=== PATIENT | male | born 1940 | race Caucasian/White ===

== ENCOUNTER → 2016-10-06 | Outpatient (CLI) | payer OTHER, MEDICARE ==
--- NOTE | 2016-10-06 14:42 | DIAGNOSTIC IMAGING REPORT ---
RIGHT KNEE 4 VIEWS CLINICAL HISTORY: Right knee pain COMPARISON: None. DISCUSSION: There is mild three compartment osteoarthritis. There are no acute fractures. There are no erosive or destructive changes. 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 IMPRESSION: Mild degenerative change. No fractures, subluxations, or destructive lesions are visualized. Electronically signed by: David Reilly M.D. 10/06/2016 2:40 PM Dictated Date/Time: 10/06/2016 2:39 PM
== END | disposition home or self-care (01) ==
LOC: C.RDSM 15:43
PROVIDERS: ATTEND Physician Assistant
DX: M17.11 Unilateral primary osteoarthritis, right knee (principal); M25.561 Pain in right knee

== ENCOUNTER → 2017-03-10 | Outpatient (CLI) | payer OTHER, MEDICARE ==
--- NOTE | 2017-03-10 11:40 | DIAGNOSTIC IMAGING REPORT ---
R KNEE 4 OR MORE HISTORY: 76 years-old Male RIGHT KNEE OSTEOARTHRITIS acute on chronic right knee pain COMPARISON: Right knee radiographs 10/06/2016 TECHNIQUE: AP view of the bilateral knees with lateral, tunnel and sunrise views of the right knee FINDINGS: The bones appear mildly demineralized. There is moderate medial compartment osteoarthritis on the left. There is moderate medial and patellofemoral compartment with mild lateral compartment osteoarthritis on the right. There is a moderate right knee joint effusion. Vascular calcifications are noted. Dystrophic appearing calcifications are seen superior to the patella within the expected region of the distal quadriceps tendon. No intra-articular loose body identified. There is mild soft tissue swelling about the knee. IMPRESSION: 1. Moderate joint effusion and mild soft tissue swelling without acute fracture or dislocation. 2. 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 3. Peripheral vascular disease. The above report was generated using voice recognition software. It may contain grammatical, syntax or spelling errors. Electronically signed by: Arben Cabral M.D. 03/10/2017 11:39 AM Dictated Date/Time: 03/10/2017 11:36 AM
== END ==
LOC: C.RDSM 13:00
PROVIDERS: ATTEND Physician Assistant
DX: M17.11 Unilateral primary osteoarthritis, right knee (principal); M25.461 Effusion, right knee; I73.9 Peripheral vascular disease, unspecified